=== PATIENT | male | born 1950 | race Caucasian/White ===

== ENCOUNTER 2017-06-04 18:39 | Emergency (ER) | payer OTHER ==
[~2017-06-04] VITALS: Ht 177.8 cm; Wt 110.2 kg
[~2017-06-04 18:39] MED LIST: ADULT LOW DOSE81 MG PO; COLACE 100 MG100 MG PO; IBUPROFEN 400400 M2 PO; IBUPROFEN 800800 M1 PO; KEFLEX500 MG; LIPITOR 20 MG T20 M1 PO; LISINOPRIL2.5 MG PO; LOTREL 10-20 M1 EACH PO; NORCO 5-325 TA1 EACH PO; PERCOCET 5-3251 EACH; PRILOSEC2.5 MG PO
[2017-06-04] MEDS ORDERED: HYDROCHLOROTH12.5 M1 (19:06)
[2017-06-04] MEDS ORDERED: OMEPRAZOLE 20 M20 M1 (19:06)
[2017-06-04] MEDS ORDERED: LISINOPRIL20 MG (19:07)
[2017-06-04 19:11] LABS: URINE BILIRUBIN NEGATIVE (Negative); URINE BLOOD TRACE (Negative); URINE COLOR YELLOW; URINE GLUCOSE-RANDOM 2+ (Negative); URINE KETONES NEGATIVE (Negative); URINE LEUKOCYTES-REFLEX NEGATIVE (Negative); URINE NITRITE-REFLEX POSITIVE (Negative); URINE PROTEIN 2+ (Negative); URINE SPECIFIC GRAVITY 1.025 (1.005-1.030); URINE UROBILINOGEN 0.2 E.U./dl (0.2-1.0)
[2017-06-04 19:19] LABS: MUCUS 4-6 Moderate strn/LPF (None Seen)
[2017-06-04 19:19] LABS: ABSOLUTE BASOPHILS 0.1 thou/uL (0.0-0.2); ABSOLUTE EOSINOPHILS 0.1 thou/uL (0.0-0.7); ABSOLUTE LYMPHOCYTES 2.9 thou/uL (0.8-5.3); ABSOLUTE MONOCYTES 1.1 thou/uL (0.0-1.2); ABSOLUTE NEUTROPHILS 10.8 thou/uL (1.6-8.1); BASOPHILS 0.6 %; EOSINOPHILS 0.6 %; HEMATOCRIT 47.8 % (42.0-52.0); HEMOGLOBIN 16.2 gm/dL (14.0-18.0); LYMPHOCYTES 19.4 %; MCH 29.9 pg (26.0-34.0); MCHC 33.9 g/dL (28.0-37.0); MCV 88.4 fL (80.0-100.0); MONOCYTES 7.3 %; MPV 8.5 fl. (7.2-11.1); NUCLEATED RBCS 0 /100WBC; PLATELET COUNT* 188 thou/uL (150-400); POLYS 72.1 %; RBC 5.41 mil/uL (4.50-6.00); RDW-CV 13.2 % (10.5-14.5); WBC 14.9 thou/uL (4.0-11.0)
[2017-06-04 19:20] LABS: BACTERIA-REFLEX >30 Many /HPF (None Seen)
[2017-06-04 19:21] LABS: URINE WBC-REFLEX 6-15 Few /HPF (0-5)
[2017-06-04 19:22] LABS: CASTS None Seen /LPF (None Seen); CRYSTALS None Seen /LPF (None Seen); SQUAMOUS NONE SEEN /LPF (0-3); URINE RBC 0-2 Rare /HPF (0-2)
[2017-06-04 19:34] LABS: ANION GAP 11 mmol/L (7-16); BUN 17 mg/dL (7-18); CALCIUM 9.2 mg/dL (8.5-10.1); CHLORIDE 99 mmol/L (98-107); CO2 26 mmol/L (21-32); GLUCOSE 243 mg/dL (70-99); POTASSIUM 3.6 mmol/L (3.5-5.1); SODIUM 136 mmol/L (136-145)
[2017-06-04 19:41] LABS: ALBUMIN 4.3 g/dL (3.4-5.0); ALKALINE PHOSPHATASE 96 U/L (46-116); SGOT 35 U/L (15-37); SGPT 103 U/L (30-65); TOTAL BILIRUBIN 0.9 mg/dL (<0.1-1.0); TOTAL PROTEIN 8.5 g/dL (6.4-8.2); TROPONIN-I LEVEL <0.06 ng/mL (<0.06)
[2017-06-04] MEDS ORDERED: BACTRIM DS TAB1 EACH PO (19:53)
[2017-06-04] MEDS ORDERED: ONDANSETRON HCL4 M2 PO (19:53)
[2017-06-04 20:52] VITALS: BP 140/96
== END 2017-06-04 20:56 | disposition home or self-care (01) ==
LOC: M.ERS 18:39
PROVIDERS: Physician Assistant
DX: N39.0 Urinary tract infection, site not specified (principal); R73.9 Hyperglycemia, unspecified; I10 Essential (primary) hypertension; G47.30 Sleep apnea, unspecified; Z88.5 Allergy status to narcotic agent

== ENCOUNTER 2020-01-14 23:33 | Inpatient (IN) | payer OTHER ==
[~2020-01-14] VITALS: Ht 177.8 cm; Wt 104.3 kg
[~2020-01-14 23:33] MED LIST changes: +BACTRIM DS TAB1 EACH PO; +HYDROCHLOROTH12.5 M1; +LISINOPRIL20 MG; +OMEPRAZOLE 20 M20 M1; +ONDANSETRON HCL4 M2 PO
[2020-01-14 23:39] VITALS: BP 121/71
[2020-01-14] MEDS ORDERED: METFORMIN HCL500 M3 PO (23:48)
[2020-01-15] MEDS ORDERED: JARDIANCE25 MG PO (00:10)
[2020-01-15] MEDS ORDERED: [UNRECOGNIZED DRUG - OTHER] (00:13)
[2020-01-15] MEDS ORDERED: SILDENAFIL CITR50 MG PO (00:14)
[2020-01-15] MEDS ORDERED: NORVASC 2.5 MG2.5 M1 PO (00:16)
[2020-01-15] MEDS ORDERED: CHLORTHALIDONE25 MG PO (00:16)
[2020-01-15 00:32] LABS: ABSOLUTE LYMPHOCYTES 1.5 thou/uL (0.8-5.3); ABSOLUTE MONOCYTES 0.4 thou/uL (0.0-1.2); ABSOLUTE NEUTROPHILS 2.9 thou/uL (1.6-8.1); BASOPHILS 0.5 %; EOSINOPHILS 0.2 %; HEMATOCRIT 43.4 % (42.0-52.0); HEMOGLOBIN 15.1 gm/dL (14.0-18.0); LYMPHOCYTES 31.1 %; MCH 29.7 pg (26.0-34.0); MCHC 34.7 g/dL (28.0-37.0); MCV 85.5 fL (80.0-100.0); MONOCYTES 8.6 %; MPV 7.9 fl. (7.2-11.1); NUCLEATED RBCS 0 /100WBC; PLATELET COUNT* 137 thou/uL (150-400); POLYS 59.6 %; RBC 5.07 mil/uL (4.50-6.00); RDW-CV 12.9 % (10.5-14.5); WBC 4.9 thou/uL (4.0-11.0)
[2020-01-15 00:38] LABS: CALCIUM 8.6 mg/dL (8.5-10.1); CREATININE 1.1 mg/dL (0.6-1.3)
[2020-01-15 00:43] LABS: ALBUMIN 3.6 g/dL (3.4-5.0); POTASSIUM 2.7 mmol/L (3.5-5.1); TOTAL BILIRUBIN 0.7 mg/dL (<0.1-1.0); TOTAL PROTEIN 7.6 g/dL (6.4-8.2)
[2020-01-15 00:55] LABS: URINE BILIRUBIN NEGATIVE (Negative); URINE BLOOD 1+ (Negative); URINE CLARITY CLEAR; URINE COLOR YELLOW; URINE GLUCOSE-RANDOM TRACE (Negative); URINE KETONES NEGATIVE (Negative); URINE LEUKOCYTES-REFLEX NEGATIVE (Negative); URINE NITRITE-REFLEX NEGATIVE (Negative); URINE PROTEIN 2+ (Negative); URINE SPECIFIC GRAVITY >= 1.030 (1.005-1.030); URINE UROBILINOGEN 0.2 E.U./dl (0.2-1.0)
[2020-01-15 01:01] LABS: BACTERIA-REFLEX >30 Many /HPF (None Seen); MUCUS >6 Heavy strn/LPF (None Seen); SQUAMOUS 0-3 Few /LPF (0-3); URINE RBC 3-10 Few /HPF (0-2); URINE WBC-REFLEX 0-5 Rare /HPF (0-5)
[2020-01-15 01:02] LABS: CELLULAR CASTS 0-3 Few /LPF (None Seen); COARSE GRANULAR CASTS 4-10 Moderate /LPF (None Seen); CRYSTALS None Seen /LPF (None Seen); FINE GRANULAR CASTS 4-10 Moderate /LPF (None Seen)
[2020-01-15 01:36] LABS: BE -3.1 mmol/L (-2 to +3); PCO2 35.1 mmHg (35.0-45.0); pH 7.395 (7.340-7.450)
[2020-01-15 01:38] LABS: PO2 57.9 mmHg (75.0-100.0)
[2020-01-15 03:07] VITALS: BP 114/67
[2020-01-15 03:30] VITALS: BP 136/71
[2020-01-15 07:35] VITALS: BP 109/69
[2020-01-15] MEDS ORDERED: ACTOS 30 MG TAB30 M1 PO (08:39)
--- NOTE | 2020-01-15 08:42 | NUR ---
PT IS ABLE TO COMMUNICATE HIS NEEDS TO STAFF EFFECTIVELY. HE HAS DENIED THE NEED FOR PAIN MEDICATION UP TO 0700 TODAY.
[2020-01-15 10:03] LABS: CALCIUM 8.5 mg/dL (8.5-10.1); CREATININE 0.8 mg/dL (0.6-1.3)
[2020-01-15 10:05] LABS: POTASSIUM 2.8 mmol/L (3.5-5.1)
[2020-01-15 10:08] LABS: PHOSPHORUS* 2.9 mg/dL (2.5-4.9)
[2020-01-15 12:12] VITALS: BP 132/74
--- NOTE | 2020-01-15 13:00 | NUR ---
SPOKE WITH PT.ON PHONE IN ROOM DUE TO COVID POSITIVE AND ENHANCED ISOLATION. HE SAID HE IS NORMALLY INDEPENDENT. HAS A CPAP AT HOME BUT NO OTHER DME. HE LIVES WITH HIS AND EXTENDED FAMILY. THEY ARE SUPPORTIVE. HE PLANS TO RETURN HOME AT DISCHARGE. NO HX OF HH OR SNF.
--- NOTE | 2020-01-15 18:00 | EKG ---
[place] [address] ELECTROCARDIOGRAM REPORT Name: CAROL GRIJALVA Room: [address] ADM IN .R.#: [id number] Admission: 01/15/20 Attend Phys: [address]ello [address], Discharge: Date of : 46 Date of Service: 01/14/20 2354 Report #: [id number] THIS REPORT FOR: //name// [facility] ED Test Date: 2020-01-14 Test Time: 23:54:34 Pat Name: CAROL GRIJALVA Department: Room: [facility] Gender: M Blackener: MANDIE : 1950 Requested By: Talia Sorto Order Number: [id number] MD: Sukh Bowers Measurements Intervals [place] Rate: 99 P: 42 AR: 155 QRS: -17 QRSD: 95 T: 58 QT: 363 QTc: 466 Interpretive Statements Sinus rhythm Probable left atrial enlargement Borderline left axis deviation Baseline wander in lead(s) I,III,aVL Compared to ECG 09/25/2015 08:07:43 No significant changes Electronically Signed On 01-15-2020 18:00:51 CNC MACHINE SETTER by Sukh Bowers [email or web address] <ELECTRONICALLY SIGNED> By: Sukh Bowers MD, FACC 01/15/20 1800 2354 2354 Sukh Bowers MD, FACC /EPI
--- NOTE | 2020-01-15 18:10 | EKG ---
[place] [address] ELECTROCARDIOGRAM REPORT Name: CAROL GRIJALVA Room: [address] ADM IN M.R.#: [id number] Admission: 01/15/20 Attend Phys: [address]ello [address], Discharge: Date of : 46 Date of Service: 01/15/20 1157 Report #: [id number] THIS REPORT FOR: //name// [facility] Test Date: 2020-01-15 Test Time: 11:57:30 Pat Name: CAROL GRIJALVA Department: Room: [address] Gender: M Metal Pourer: : 1950 Requested By: Bello Street Order Number: [id number] Jamarcus MD: Sukh Bowers Measurements Intervals [place] Rate: 84 P: 39 MD: 160 QRS: 0 QRSD: 99 T: 41 QT: 412 QTc: 488 Interpretive Statements Sinus rhythm Compared to ECG 01/14/2020 23:54:34 No significant changes Electronically Signed On 01-15-2020 18:10:51 ART DEPARTMENT HEAD by Sukh Bowers [email or web address] <ELECTRONICALLY SIGNED> By: Sukh Bowers MD, FACC 01/15/20 1810 1157 1157 Sukh Bowers MD, FACC /EPI
--- NOTE | 2020-01-15 18:57 | NUR ---
PT A&OX4 VSS. PT UP TO CHAIR THIS AFTERNOON FOR MEALS. PT ON 2L O2 BY NC. CPAP FROM HOME. NO C/O N/V THIS SHIFT. PT TOLERATES PO INTAKE. POTASSIUM REPLACED THIS SHIFT PER PROTOCOL. PT TOLERATES PO ADMINISTRATION. PT UP AD TREVER, GAIT STEADY. PT REMAINS SINUS ON MONITOR. PT ACCUCHECK, INSULIN ADMINISTERED DIRECTED. PT RESTS IN ROOM WITH CALL LIGHT IN REACH, WILL CONTINUE TO MONITOR.
[2020-01-15 20:00] VITALS: BP 118/74
[2020-01-15 22:09] VITALS: BP 118/72; BP 129/74
[2020-01-16] VITALS: BP 127/76
[2020-01-16 04:00] VITALS: BP 119/75
--- NOTE | 2020-01-16 05:44 | NUR ---
ASSUMED PT'S CARE @ 1930. ALERT AND ORIENTED. UP AD TREVER. VSS ON 2L. MEDS GIVEN PER EMAR. PT SLEPT WELL THIS SHIFT. I FFP INFUSED ORDERED. CALL LIGHT WITHIN REACH. WILL CONTINUE TO MONITOR.
[2020-01-16 07:35] VITALS: BP 137/77
[2020-01-16 10:32] LABS: ALBUMIN 3.5 g/dL (3.4-5.0); CALCIUM 8.5 mg/dL (8.5-10.1); CREATININE 0.7 mg/dL (0.6-1.3); POTASSIUM 3.5 mmol/L (3.5-5.1); TOTAL BILIRUBIN 0.5 mg/dL (<0.1-1.0); TOTAL PROTEIN 7.9 g/dL (6.4-8.2)
[2020-01-16 11:23] VITALS: BP 128/79
[2020-01-16 16:35] VITALS: BP 130/71
--- NOTE | 2020-01-16 16:44 | NUR ---
PT A&OX4 VSS. PT ON 2L O2 NC. PT DENIES N/V. PT DENIES PAIN AT THIS TIME. PT UP AD TREVER, REMAINS CONTINENT OF B/B. PT ACCUCHECK, INSULIN ADMINISTERED DIRECTED. PT STATES HE RESTED WELL OVERNIGHT. PT ASSISTED TO SHOWER THIS AM. IV TO LAF PATENT, DRESSING CHANGED, C/D/I. PT RESTS IN BED WITH CALL LIGHT IN REACH, WILL CONTINUE TO MONITOR.
[2020-01-16 20:30] VITALS: BP 137/70
--- NOTE | 2020-01-17 07:01 | NUR ---
PT SLEPT WELL, HAD SLEEP STUDY AND RT STATES HE DID WELL. UP AD TREVER IN ROOM,ROOM AIR. AM LABS AND CXR. ABLE TO USE CALL LITE AND MAKE NEEDS KNOWN. REMAINS ON COVID ISOLATION. PT HOPEFUL FOR DISCHARGE HOME SOON. LFA SL IV.
[2020-01-17 08:00] VITALS: BP 130/76
[2020-01-17] MEDS ORDERED: PREDNISONE 10 M10 MG PO (10:08)
[2020-01-17] MEDS ORDERED: ZOFRAN ODT4 MG PO (10:10)
--- NOTE | 2020-01-17 11:19 | NUR ---
PT A&OX4 VSS. PT IS SINUS ON MONITOR. PT IS ACCUCHECK, SLIDING SCALE INSULIN ADMINISTERED DIRECTED. PT UP AD TREVER. PT SPENT NIGHT ON ROOM AIR WITH CONTINUOUS PULSE OXIMETER. PT CLEARED BY RT TO DC WITHOUT O2. IV TO LFA PATENT, DRESSING C/D/I. IV DC'D PRIOR TO PT LEAVING UNIT. PT DRESSED AND PEFORMED ADLS INDEPENDENTLY. PT REMAINS CONTINENT OF B/B. PT STATES UNDRESTANDING OF DC INSTRUCITONS AND ISOLATION INFORMATION PROVIDED. PT LEAVES UNIT IN WC ESCORTED BY NURSING STAFF.
[2020-01-17 11:44] VITALS: BP 130/76
[2020-01-17 12:28] VITALS: BP 130/76
[2020-01-18 03:06] LABS: HIV-1/HIV-2 ANTIBODY Non Reactive (Non Reactive)
[2020-01-19 09:08] LABS: HEPATITIS B SURFACE AG Negative (Negative)
== END 2020-01-17 12:24 | disposition home or self-care (01) | DRG 177 ==
LOC: M.ERS 23:33 → M.TBA-ER 01-15 01:44 → M.ORTHSURG 01-15 01:44
PROVIDERS: Personal Emergency Response Attendant; ADMIT Internal Medicine; ATTEND Internal Medicine
PROC: XW033E5 Introduction of Remdesivir Anti-infective into Peripheral Vein, Percutaneous Approach, New Technology Group 5 (ICD-10-PCS; principal; 2020-01-15)
PROC: 5A09357 Assistance with Respiratory Ventilation, Less than 24 Consecutive Hours, Continuous Positive Airway Pressure (ICD-10-PCS; principal; 2020-01-15)
PROC: XW13325 Transfusion of Convalescent Plasma (Nonautologous) into Peripheral Vein, Percutaneous Approach, New Technology Group 5 (ICD-10-PCS; principal; 2020-01-15)
DX: U07.1 COVID-19 (principal); J96.01 Acute respiratory failure with hypoxia; J12.89 Other viral pneumonia; A08.4 Viral intestinal infection, unspecified; E87.6 Hypokalemia; G47.33 Obstructive sleep apnea (adult) (pediatric); E86.9 Volume depletion, unspecified; E11.9 Type 2 diabetes mellitus without complications; K21.9 Gastro-esophageal reflux disease without esophagitis; E66.9 Obesity, unspecified; I10 Essential (primary) hypertension; K80.20 Calculus of gallbladder without cholecystitis without obstruction; K57.30 Diverticulosis of large intestine without perforation or abscess without bleeding; Z79.82 Long term (current) use of aspirin; Z68.33 Body mass index [BMI] 33.0-33.9, adult; Z79.899 Other long term (current) drug therapy; Z79.84 Long term (current) use of oral hypoglycemic drugs; Z88.5 Allergy status to narcotic agent; Z72.89 Other problems related to lifestyle

== ENCOUNTER 2020-08-12 18:37 | Inpatient (IN) | payer OTHER ==
[~2020-08-12] VITALS: Ht 177.8 cm; Wt 103.0 kg
[~2020-08-12 18:37] MED LIST changes: +ACTOS 30 MG TAB30 M1 PO; +CHLORTHALIDONE25 MG PO; +JARDIANCE25 MG PO; -LISINOPRIL20 MG; +LISINOPRIL20 MG PO; +METFORMIN HCL500 M3 PO; +NORVASC 2.5 MG2.5 M1 PO; +PREDNISONE 10 M10 MG PO; +SILDENAFIL CITR50 MG PO; +ZOFRAN ODT4 MG PO; +[UNRECOGNIZED DRUG - OTHER]
[2020-08-12 18:42] VITALS: BP 77/47
[2020-08-12 19:50] LABS: ABSOLUTE EOSINOPHILS 0.2 thou/uL (0.0-0.7); ABSOLUTE LYMPHOCYTES 2.3 thou/uL (0.8-5.3); ABSOLUTE MONOCYTES 0.6 thou/uL (0.0-1.2); ABSOLUTE NEUTROPHILS 5.6 thou/uL (1.6-8.1); BASOPHILS 0.1 %; EOSINOPHILS 2.1 %; HEMOGLOBIN 15.5 gm/dL (14.0-18.0); LYMPHOCYTES 26.5 %; MCH 30.7 pg (26.0-34.0); MCHC 35.2 g/dL (28.0-37.0); MCV 87.1 fL (80.0-100.0); MONOCYTES 7.4 %; MPV 8.5 fl. (7.2-11.1); NUCLEATED RBCS 0 /100WBC; PLATELET COUNT* 186 thou/uL (150-400); POLYS 63.9 %; RBC 5.06 mil/uL (4.50-6.00); RDW-CV 14.1 % (10.5-14.5); WBC 8.8 thou/uL (4.0-11.0)
[2020-08-12 20:02] LABS: CALCIUM 9.2 mg/dL (8.5-10.1); CREATININE 1.2 mg/dL (0.6-1.3)
[2020-08-12 20:03] LABS: POTASSIUM 2.9 mmol/L (3.5-5.1)
[2020-08-12 20:12] LABS: ALBUMIN 4.3 g/dL (3.4-5.0); MAGNESIUM 1.6 mg/dL (1.8-2.4); TOTAL BILIRUBIN 0.9 mg/dL (<0.1-1.0)
[2020-08-13 06:23] VITALS: BP 136/79
[2020-08-13 08:52] VITALS: BP 120/71
--- NOTE | 2020-08-13 11:40 | EKG ---
[place] [address] ELECTROCARDIOGRAM REPORT Name: CAROL GRIJALVA Room: [address] M.R.#: [id number] Admission: 08/12/20 Attend Phys: Roland eMndes, Discharge: Date of : 46 Date of Service: 08/12/20 1844 Report #: [id number] THIS REPORT FOR: //name// [facility] ED Test Date: 2020-08-12 Test Time: 18:44:29 Pat Name: CAROL GRIJALVA Department: Room: [facility] Gender: M Signaler: RAUL : 1950 Requested By: Harjit Hickman Order Number: [id number] MD: Jj Hopson Measurements Intervals [place] Rate: 160 P: 0 [place]: QRS: -4 QRSD: 92 T: 145 QT: 260 QTc: 425 Interpretive Statements Supraventricular tachycardia Probable LVH with secondary repol abnrm ST depression, probably rate related Baseline wander in lead(s) V2 Compared to ECG 01/15/2020 11:57:30 ST (T wave) deviation now present Sinus rhythm no longer present Electronically Signed On 08-13-2020 11:40:14 CDT by Jj Hopson [email or web address] <ELECTRONICALLY SIGNED> By: Jj Hopson MD, [facility] 08/13/20 1140 1844 1844 Jj Hopson MD, [facility] /EPI
--- NOTE | 2020-08-13 11:40 | EKG ---
[place] [address] ELECTROCARDIOGRAM REPORT Name: CAROL GRIJALVA Room: [address] M.R.#: [id number] Admission: 08/12/20 Attend Phys: Roland Mendes, Discharge: Date of : 46 Date of Service: 08/12/201910 Report #: [id number] THIS REPORT FOR: //name// [facility] ED Test Date: 2020-08-12 Test Time: 19:11:42 Pat Name: CAROL RUDI Department: Room: [facility] Gender: M Qual Research Manager: SONYA : 1950 Requested By: Harjit Hickman Order Number: [id number] MD: Jj Hopson Measurements Intervals [place] Rate: 96 P: 52 NE: 159 QRS: -5 QRSD: 94 T: 68 QT: 359 QTc: 454 Interpretive Statements Sinus rhythm Probable left atrial enlargement Abnormal R-wave progression, early transition Compared to ECG 08/12/2020 18:44:29 Supraventricular tachycardia no longer present ST (T wave) deviation no longer present Electronically Signed On 08-13-2020 11:40:29 CDT by Jj Hopson [email or web address] <ELECTRONICALLY SIGNED> By: Jj Hopson MD, [facility] 08/13/20 1140 10 10 Jj Hopson MD, [facility] /EPI
[2020-08-13 12:00] VITALS: BP 139/94
[2020-08-13 16:00] VITALS: BP 151/90
[2020-08-13 21:20] VITALS: BP 152/88
[2020-08-14] VITALS: BP 140/80
[2020-08-14 04:10] VITALS: BP 148/83
[2020-08-14 05:25] LABS: CALCIUM 8.7 mg/dL (8.5-10.1); CREATININE 0.8 mg/dL (0.6-1.3); MAGNESIUM 1.8 mg/dL (1.8-2.4); POTASSIUM 3.3 mmol/L (3.5-5.1)
[2020-08-14 05:32] LABS: HEMATOCRIT 41.8 % (42.0-52.0); HEMOGLOBIN 14.3 gm/dL (14.0-18.0); MCH 29.8 pg (26.0-34.0); MCHC 34.3 g/dL (28.0-37.0); MCV 86.9 fL (80.0-100.0); MPV 8.9 fl. (7.2-11.1); RBC 4.81 mil/uL (4.50-6.00); WBC 5.7 thou/uL (4.0-11.0)
[2020-08-14 05:48] LABS: ANION GAP 8 mmol/L (7-16); BUN 17 mg/dL (7-18); CALCIUM 8.7 mg/dL (8.5-10.1); CHLORIDE 104 mmol/L (98-107); CO2 28 mmol/L (21-32); CREATININE 0.8 mg/dL (0.6-1.3); GLUCOSE 171 mg/dL (70-99); POTASSIUM 3.4 mmol/L (3.5-5.1); SODIUM 140 mmol/L (136-145); TROPONIN-I LEVEL <0.06 ng/mL (<0.06)
[2020-08-14 06:07] LABS: CHOLESTEROL 163 mg/dL (<200); HDL CHOLESTEROL 40 mg/dL (>40); LDL CHOLESTEROL 98 mg/dL (<100); TC:HDL 4.1 Ratio (Not establshd); TRIGLYCERIDE 127 mg/dL (<150); VLDL 25 mg/dL (<40)
[2020-08-14 06:36] LABS: SERUM ASSESSMENT Clear
[2020-08-14 08:00] VITALS: BP 156/83
[2020-08-14] MEDS ORDERED: METOPROLOL TART25 MG PO (09:32)
[2020-08-14 10:53] VITALS: BP 156/83
[2020-08-14] MEDS ORDERED: LOPRESSOR50 MG PO (11:39)
[2020-08-14] MEDS ORDERED: POTASSIUM20 PO (11:40)
--- NOTE | 2020-08-14 11:54 | CON ---
[address] [address] CONSULTATION Name: CAROL GRIJALVA Room: [address] IN [place].Janis.#: [id number] Admission: 08/13/20 Attend Phys: Roland Mendes MD Discharge: Date of : 46 Report #: [id number] THIS REPORT FOR: cc: Giulia Timmons MD, Terri MD Blick,Jj Garrett MD [facility] ~ DOC #: [id number] Jj Hopson MD [facility] DATE OF CONSULTATION: 08/13/2020 CARDIOLOGY CONSULTATION HISTORY OF PRESENT ILLNESS: The patient is a 69-year-old white male who I was asked to see in the hospital today after he was noted to be tachycardic. The history was obtained from the patient. He has been hospitalized here at [facility] in the past. He was admitted here in 2016 after he suffered a transient global amnesia. He was admitted here last January with COVID-19 pneumonia. He denies a history of heart disease. He has had no previous cardiac evaluation. However, he does note that every once in a while he will feel his heart skipping a few beats, but last only a few seconds. However, yesterday he was working in his yard mowing and he did feel diaphoretic. He then noticed his heart was racing, felt lightheaded and had to sit down. He did note some chest discomfort, but there is no radiation into his arms. He had to sit down. Ambulance was called. He was brought here to [facility]. He was noted to be in narrow complex tachycardia at 160 beats per minute consistent with PSVT. He Valsalva it and converted to a sinus rhythm. He was admitted for further evaluation and treatment. He denies history of exertional chest tightness, dyspnea on exertion, fever or cough. He does have occasional edema. He has had no previous syncope. He denies a history of heart murmur. PAST MEDICAL HISTORY: He has had previous hemorrhoid surgery. He has a history of hypertension, diabetes. MEDICATIONS: On admission included Actos, metformin, chlorthalidone, omeprazole, lisinopril, amlodipine. 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 FAMILY HISTORY: His mother had a stroke. SOCIAL HISTORY: He is , lives in [place]. 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 Quit smoking years ago, rarely drinks alcohol, does have 4 cups of coffee a day. REVIEW OF SYSTEMS: No history of stroke. He does have sleep apnea, [place] [address] CONSULTATION Name: CAROL GRIJALVA Room: [address] IN ..#: [id number] Admission: 08/13/20 Attend Phys: Roland Mendes MD Discharge: Date of : 46 Report #: [id number] CPAP. No history of liver disease. 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 No history of cancer. No chronic skin condition. No psychiatric illness. Does wear glasses. PHYSICAL EXAMINATION: GENERAL: Revealed an elderly male who appeared in no distress. VITAL SIGNS: He had a blood pressure of 120/70, pulse is 70 and regular. HEENT: He was anicteric. Conjunctivae pink. Mucosa moist. NECK: Veins not distended. No carotid bruits. Neck is supple. CHEST: Clear to auscultation. HEART: Regular rate and rhythm. Grade 2 systolic ejection murmur at left sternal border. ABDOMEN: Soft. EXTREMITIES: Had no edema. Posterior tibial pulse 2+ bilaterally.. SKIN: Cool and dry. NEUROLOGIC: Nonfocal. IMAGING: ECG on admission showed a narrow complex tachycardia at 160 beats per minute consistent with PSVT. After Valsalva, his ECG showed a sinus rhythm with early repolarization. Workup in the Emergency Room last night revealed that the patient actually had an echocardiogram done here at [facility] in 2015, that showed ejection fraction of 60%. A bubble study showed no evidence of shunt. His x-ray last night in the Emergency Room included a chest x-ray that showed normal heart size, clear lung elias. Previous CT scan of the chest in January when he was here with COVID-19 showed evidence of COVID pneumonia, a gallstone, possible adrenal adenoma, diverticular disease. Previous MRI of the head back in 2016, when the patient presented with global amnesia showed atrophy, small vessel changes. LABORATORY DATA: His lab work, sodium is 138, potassium is only 2.9, creatinine 1.2. His troponin was mildly elevated at 0.3. BNP was 46. In 2016, his cholesterol 162, triglycerides 61, HDL 50, LDL 100. TSH in 2016 was 0.8. White blood cell count 8.8, hemoglobin 15.5. IMPRESSION AND RECOMMENDATIONS: 1. Paroxysmal supraventricular tachycardia. I did recommend he avoid caffeine. At this time, I would consider starting the patient on beta lavonne. If he has recurrent episodes, we will consider ablation. I think it would be safe to discharge the patient tomorrow. 2. Hypertension. The patient has been on diuretic, QUINN inhibitor and calcium lavonne. I would recommend replacing potassium. 3. Diabetes mellitus. The patient is on oral medications. 4. History of global amnesia. The patient does take an aspirin a day. 5. Sleep apnea. [place] [address] CONSULTATION Name: CHANDANAPAULINOCAROL MORTENSEN Room: [address] IN [facility].#: [id number] Admission: 08/13/20 Attend Phys: Roland Mendes MD Discharge: Date of : 46 Report #: [id number] Jj Hopson MD FACC DRB/NUSRAT/GUILHERME <ELECTRONICALLY SIGNED> By: Jj Hopson MD, JULIA 08/14/20 1154 0907 1724Dblank Hopson MD, JULIA /nt
== END 2020-08-14 12:10 | disposition home or self-care (01) | DRG 310 ==
LOC: M.ERS 18:37 → M.TBA-ER 22:30 → M.2W 08-13 09:20
PROVIDERS: Emergency Medicine Emergency Medical Services; Internal Medicine; Internal Medicine Cardiovascular Disease; ADMIT Internal Medicine; ATTEND Internal Medicine
DX: I47.1 Supraventricular tachycardia (principal); E87.6 Hypokalemia; I10 Essential (primary) hypertension; E83.42 Hypomagnesemia; G45.4 Transient global amnesia; G47.30 Sleep apnea, unspecified; E11.9 Type 2 diabetes mellitus without complications; Z20.822 Contact with and (suspected) exposure to COVID-19; Z79.82 Long term (current) use of aspirin; Z79.899 Other long term (current) drug therapy; Z79.84 Long term (current) use of oral hypoglycemic drugs; Z88.5 Allergy status to narcotic agent; Z87.891 Personal history of nicotine dependence

== ENCOUNTER 2020-08-26 16:21 | Emergency (ER) | payer OTHER, MEDICARE ==
[~2020-08-26] VITALS: Ht 172.7 cm; Wt 117.9 kg
[~2020-08-26 16:21] MED LIST changes: +LOPRESSOR50 MG PO; +METOPROLOL TART25 MG PO; +POTASSIUM20 PO
[2020-08-26 16:48] LABS: ABSOLUTE BASOPHILS 0.1 thou/uL (0.0-0.2); ABSOLUTE EOSINOPHILS 0.2 thou/uL (0.0-0.7); ABSOLUTE LYMPHOCYTES 3.7 thou/uL (0.8-5.3); ABSOLUTE MONOCYTES 0.5 thou/uL (0.0-1.2); ABSOLUTE NEUTROPHILS 4.2 thou/uL (1.6-8.1); BASOPHILS 0.6 %; EOSINOPHILS 2.2 %; HEMATOCRIT 46.3 % (42.0-52.0); HEMOGLOBIN 16.1 gm/dL (14.0-18.0); LYMPHOCYTES 42.6 %; MCH 30.5 pg (26.0-34.0); MCHC 34.8 g/dL (28.0-37.0); MCV 87.5 fL (80.0-100.0); MONOCYTES 6.1 %; MPV 8.3 fl. (7.2-11.1); NUCLEATED RBCS 0 /100WBC; PLATELET COUNT* 219 thou/uL (150-400); POLYS 48.5 %; RBC 5.29 mil/uL (4.50-6.00); RDW-CV 13.7 % (10.5-14.5); WBC 8.8 thou/uL (4.0-11.0)
[2020-08-26 16:57] LABS: CREATININE 1.2 mg/dL (0.6-1.3); POTASSIUM 3.4 mmol/L (3.5-5.1)
[2020-08-26 17:10] LABS: ALBUMIN 4.3 g/dL (3.4-5.0); CK-MB MASS 0.6 ng/mL (<0.5-3.6); MAGNESIUM 1.8 mg/dL (1.8-2.4); TOTAL BILIRUBIN 0.6 mg/dL (<0.1-1.0); TOTAL PROTEIN 8.3 g/dL (6.4-8.2)
[2020-08-26 17:48] VITALS: BP 150/90
--- NOTE | 2020-08-27 11:00 | EKG ---
[place] [address] ELECTROCARDIOGRAM REPORT Name: CAROL GRIJALVA Room: [facility]#: [id number] Admission: 08/26/20 Attend Phys: Discharge: 08/26/20 Date of : 46 Date of Service: 08/26/20 [facility] Report #: [id number] THIS REPORT FOR: //name// [facility] ED Test Date: 2020-08-26 Test Time: 16:40:44 Pat Name: CAROLJEFFERSON GRIJALVA Department: Room: Gender: Tug Boat Captain: CD : 1950 Requested By: Neri Hill Order Number: [id number] MD: All Roberto Measurements Intervals [place] Rate: 84 P: 53 NM: 164 QRS: 13 QRSD: 92 T: 67 QT: 374 QTc: 443 Interpretive Statements Sinus rhythm Probable left atrial enlargement Abnormal R-wave progression, early transition Compared to ECG 08/26/2020 16:37:07 Sinus tachycardia no longer present Aberrant conduction of supraventricular beat(s) no longer present T-wave abnormality no longer present Possible ischemia no longer present Electronically Signed On 08-27-2020 11:00:03 CDT by All Roberto [email or web address] <ELECTRONICALLY SIGNED> By: All Roberto MD, [facility] 08/27/20 1100 1640 1640 All Roberto MD, [facility] /EPI
--- NOTE | 2020-08-27 11:00 | EKG ---
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: Environmental Scientist: CD : 1950 Requested By: Neri Hill Order Number: [id number] MD: All Roberto Measurements Intervals [place] Rate: 115 P: 54 [place]: 160 QRS: 18 QRSD: 87 T: 105 QT: 287 QTc: 397 Interpretive Statements Sinus rhythm with a short burst of SVT and rare PVCs Left atrial enlargement Abnormal R-wave progression, early transition Nonspecific ST-T abnormalities Compared to ECG 08/12/2020 19:11:42 Short burst of SVT and PVCs are noted T-wave abnormality now present Electronically Signed On 08-27-2020 10:59:49 CDT by All Roberto [email or web address] <ELECTRONICALLY SIGNED> By: All Roberto MD, [facility] 08/27/20 1059 1637 1637 All Roberto MD, [facility] /EPI
--- NOTE | 2020-08-29 17:03 | EKG ---
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: RIAN : 1950 Requested By: Neri Hill Order Number: [id number] MD: Sukh Bowers Measurements Intervals [place] Rate: 170 P: 17 [place]: 162 QRS: 4 QRSD: 84 T: 116 QT: 289 QTc: 486 Interpretive Statements Supraventricular tachycardia Repolarization abnormality, prob rate related Baseline wander in lead(s) II,III,aVR,aVF,V1,V2,V5 Compared to ECG 08/12/2020 19:11:42 Early repolarization now present Sinus rhythm no longer present Electronically Signed On 08-29-2020 17:03:02 CDT by Sukh Bowers [email or web address] <ELECTRONICALLY SIGNED> By: Sukh Bowers MD, [facility] 08/29/20 1703 1627 1627 Sukh Bowers MD, [facility] /EPI
== END 2020-08-26 17:49 | disposition home or self-care (01) ==
LOC: M.ERS 16:21
PROVIDERS: Family Medicine
DX: I47.1 Supraventricular tachycardia (principal); I10 Essential (primary) hypertension; G47.30 Sleep apnea, unspecified; Z88.5 Allergy status to narcotic agent; Z79.899 Other long term (current) drug therapy